=== PATIENT | female | born 1975 | race African-American/Black ===

== ENCOUNTER 2016-10-22 19:03 | Emergency (ER) | payer OTHER ==
[2016-10-22 19:24] LABS: BASOPHILS 0.3 % (0.0-2.0); HEMATOCRIT 39.6 % (36.0-48.0); HEMOGLOBIN 12.8 g/dL (12-16); IMMATURE GRANULOCYTES 0.1 % (0-5); LYMPHOCYTES 50.4 % (15-50); MCH 27.9 pg (26.0-34.0); MCHC 32.3 g/dL (31.0-37.0); MCV 86.5 fL (80.0-100.0); MEAN PLATELET VOLUME 10.1 fL (7.4-10.4); MONOCYTES 9.8 % (2-11); NEUTROPHILS 38.4 % (40-80); PLATELET COUNT 297 10x3/uL (130-400); RBC 4.58 10x6/uL (4.00-5.40); RDW 13.3 % (11.5-14.5); WBC 7.9 10x3/uL (4.8-10.8)
[2016-10-22 19:38] LABS: ALBUMIN 3.7 g/dL (3.4-5.0); ANION GAP 20.1 mmol/L (8-16); BILIRUBIN - TOTAL 0.5 mg/dL (0.2-1.3); CALCIUM 8.7 mg/dL (8.5-10.1); CARBON DIOXIDE 17.7 mmol/L (21.0-32.0); CREATININE - SERUM 1.2 mg/dL (0.6-1.3); PROTEIN - SERUM 7.9 g/dL (6.4-8.2)
[2016-10-22 19:42] LABS: POTASSIUM - SERUM 2.8 mmol/L (3.5-5.1)
[2016-10-22 21:15] LABS: APPEARANCE SLT CLOUDY (CLEAR); BACTERIA FEW /hpf (NONE SEEN); BILIRUBIN NEGATIVE (NEGATIVE); COLOR YELLOW (YELLOW); EPITHELIAL CELLS 25-50 /hpf (0-5); GLUCOSE NEGATIVE (NEGATIVE); KETONE NEGATIVE (NEGATIVE); LEUKOCYTE ESTERASE 2+ (NEGATIVE); MUCUS <1+ /lpf (NONE SEEN); NITRITE NEGATIVE (NEGATIVE); PROTEIN 1+ mg/dL (NEGATIVE); RED CELLS - URINE 0-5 /hpf (0-5); SPECIFIC GRAVITY 1.015 (1.005-1.020); UROBILINOGEN NORMAL (NORMAL)
[2016-10-22 21:19] LABS: UDS - AMPHET NEGATIVE QUAL (NEGATIVE); UDS - BARB NEGATIVE QUAL (NEGATIVE); UDS - BENZO NEGATIVE QUAL (NEGATIVE); UDS - COCAINE NEGATIVE QUAL (NEGATIVE); UDS - METH NEGATIVE QUAL (NEGATIVE); UDS - OPIATE POSITIVE QUAL (NEGATIVE); UDS - PCP NEGATIVE QUAL (NEGATIVE); UDS - THC NEGATIVE QUAL (NEGATIVE)
== END 2016-10-22 22:40 | disposition home or self-care (01) ==
LOC: D.ER 19:03
PROVIDERS: Family Medicine; Physician Assistant
DX: S21.112A Laceration without foreign body of left front wall of thorax without penetration into thoracic cavity, initial encounter (principal); X99.1XXA Assault by knife, initial encounter; Y93.89 Activity, other specified; Y92.019 Unspecified place in single-family (private) house as the place of occurrence of the external cause; E87.6 Hypokalemia; I10 Essential (primary) hypertension